=== PATIENT | male | born 1985 | race Hispanic/Latino ===

== ENCOUNTER 2019-06-20 03:40 | Emergency (ER) | payer OTHER ==
[2019-06-20] MEDS ORDERED: KETOROLAC TROMETHAMINE 15MG/ML ONE (04:20)
[2019-06-20] MEDS ORDERED: LIDOCAINE HCL 2% JELLY 5 ML ONE (04:20)
[2019-06-20] MEDS ORDERED: KETOROLAC TROMETHAMINE 30MG/ML ONE (04:20)
[2019-06-20] MEDS ORDERED: AMOXICILLIN 500 MG CAPSULE PO ONE (04:20)
== END 2019-06-20 05:09 | disposition home or self-care (01) ==
LOC: EDH 03:40
DX: Z20.828 Contact with and (suspected) exposure to other viral communicable diseases (principal); S02.5XXA Fracture of tooth (traumatic), initial encounter for closed fracture; R07.89 Other chest pain; Z98.890 Other specified postprocedural states; K08.89 Other specified disorders of teeth and supporting structures; Z72.0 Tobacco use; X58.XXXA Exposure to other specified factors, initial encounter; Y93.89 Activity, other specified; Y92.89 Other specified places as the place of occurrence of the external cause; Y99.8 Other external cause status
CPT/HCPCS: 36415; 71045; 87635; 93005; 96372; 99285; J1885 ×2